=== PATIENT | male | born 1935 | race Caucasian/White ===

== ENCOUNTER 2018-09-26 06:11 | Inpatient (IN) ==
[2018-09-26] MEDS ORDERED: ASPIRIN 325 MG TABLET ONE (06:50)
[2018-09-26] MEDS ORDERED: LIDOCAINE 1% 20 ML VIAL ONE (06:50)
[2018-09-26] MEDS ORDERED: HEPARIN/NACL 0.9% 2 UNITS/ML 1,000 ML IV ONE (06:50)
[2018-09-26] MEDS ORDERED: DIAZEPAM 5 MG TABLET ONE (06:50)
[2018-09-26] MEDS ORDERED: diphenhydrAMINE CAP 25 MG CAPSULE ONE (06:51)
[2018-09-26] MEDS ORDERED: ASPIRIN 325 MG TABLET PO ONE (06:57)
[2018-09-26] MEDS ORDERED: diphenhydrAMINE CAP 25 MG CAPSULE PO ONE (06:57)
[2018-09-26] MEDS ORDERED: POTASSIUM CHLORIDE RIDER 10 MEQ in PREMIX 1 EACH IV PRN (06:57)
[2018-09-26] MEDS ORDERED: DIAZEPAM 5 MG TABLET PO ONE (06:57)
[2018-09-26] MEDS ORDERED: MAGNESIUM SULF RIDER 2 GM in PREMIX 1 EACH IV PRN (06:57)
[2018-09-26 07:06] LABS: Basophils # 0.1 10*3/uL (0.0-0.2); Basophils % 1.1 % (0.0-0.8); Eosinophils # 0.4 10*3/uL (0.0-0.87); Hematocrit 38.6 VOL% (42.0-52.0); Hemoglobin 12.4 GM/DL (14.0-18.0); Immature Granulocytes % 0.3 %; Immature Granulocytes Absolute 0.02 #; Lymphocytes # 2.4 10*3/uL (1.4-4.0); Lymphocytes % 37.4 % (21.2-54.2); Mean Corpuscular HGB Conc 32.1 GM/DL (32-36); Mean Corpuscular Volume 98.7 FL (87-102); Mean Platelet Volume 9.5 FL (9.6-12.0); Monocytes % 11.8 % (1.7-12.7); Neutrophils % 43.4 % (38.7-73.9); Platelet Count 211 T/CUMM (130-400); Red Blood Count 3.91 MC/CUMM (3.8-5.5); Red Cell Distribution Width 12.7 % (9.3-17.3); White Blood Count 6.3 T/CUMM (4-12)
[2018-09-26 07:11] LABS: PT Patient Result 10.6 SECS
[2018-09-26] MEDS: SODIUM CHLORIDE 0.9% 1,000 ML IV SCH ×3 (07:17→23:14)
[2018-09-26 07:19] LABS: Calcium 9.2 MG/DL (8.5-10.1); Osmolality,Calculated 286.4 MOS/KG (273-304)
[2018-09-26] MEDS ORDERED: MIDAZOLAM 2 MG/2 ML VIAL ONE (07:24)
[2018-09-26] MEDS ORDERED: HYDROmorphone 2 MG/1 ML VIAL ONE (07:24)
[2018-09-26] MEDS ORDERED: ONDANSETRON 4 MG/2 ML VIAL IV PRN (08:06)
[2018-09-26] MEDS ORDERED: DEXTROSE 50% 25 GM/50 ML VIAL IV PRN (08:06)
[2018-09-26] MEDS ORDERED: NITROGLYCERIN SL 0.4 MG TABLET SL PRN (08:06)
[2018-09-26] MEDS ORDERED: GLUCAGON 1 MG VIAL IM PRN (08:06)
[2018-09-26] MEDS ORDERED: ZALEPLON 5 MG CAPSULE PO PRN (08:06)
[2018-09-26] MEDS: ISOSORBIDE MONONITRATE 20 MG TABLET PO SCH (10:34)
[2018-09-26] MEDS: PANTOPRAZOLE 40 MG TABLET PO SCH (10:35)
[2018-09-26] MEDS: glipiZIDE 10 MG TABLET PO SCH (10:36)
[2018-09-26] MEDS: INSULIN NPH/REGULAR 70/30 100 UNIT/ML SUBCUT SCH ×2 (10:36→22:42)
[2018-09-26] MEDS: ASPIRIN EC 81 MG TABLET PO SCH (10:37)
[2018-09-26] MEDS: METOPROLOL SUCCINATE XL 25 MG TABLET PO SCH (10:37)
[2018-09-26] MEDS ORDERED: hydrALAZINE 20 MG/1 ML VIAL IV PRN (13:18)
[2018-09-26] MEDS: amLODIPine 5 MG TABLET PO SCH (14:56)
[2018-09-26] MEDS ORDERED: HEPARIN 5,000 UNIT/1 ML VIAL IV ONE ×2 (15:00→23:10)
[2018-09-26] MEDS: HEPARIN DRIP 25,000 UNITS/500 ML PREMIX IV SCH (15:28)
[2018-09-26] MEDS: INSULIN LISPRO 100 UNIT/ML SUBCUT SCH ×2 (16:13→22:42)
[2018-09-26] MEDS ORDERED: MAGNESIUM HYDROXIDE SUSP 30 ML UDCUP PO PRN (17:27)
[2018-09-26] MEDS ORDERED: diphenhydrAMINE CAP 25 MG CAPSULE PO PRN (17:27)
[2018-09-26] MEDS: ROSUVASTATIN 20 MG TABLET PO SCH (21:45)
[2018-09-27] MEDS: SODIUM CHLORIDE 0.9% 1,000 ML IV SCH ×4 (04:24→18:51)
[2018-09-27 05:02] LABS: Basophils % 0.5 % (0.0-0.8); Eosinophils # 0.3 10*3/uL (0.0-0.87); Hematocrit 33.8 VOL% (42.0-52.0); Hemoglobin 10.8 GM/DL (14.0-18.0); Immature Granulocytes % 0.3 %; Immature Granulocytes Absolute 0.02 #; Lymphocytes # 1.9 10*3/uL (1.4-4.0); Lymphocytes % 28.9 % (21.2-54.2); Mean Corpuscular Volume 99.4 FL (87-102); Mean Platelet Volume 11.6 FL (9.6-12.0); Monocytes % 10.9 % (1.7-12.7); Neutrophils % 54.4 % (38.7-73.9); Platelet Count 91 T/CUMM (130-400); Red Cell Distribution Width 12.6 % (9.3-17.3); White Blood Count 6.4 T/CUMM (4-12)
[2018-09-27 05:27] LABS: Eosinophils 2 % (0-10); Lymphocytes 30 % (20-55); Segmented Neutrophils 61 % (50-85); Total Cells Counted 100
[2018-09-27 05:29] LABS: Platelet Estimate Decreased
[2018-09-27] MEDS ORDERED: HEPARIN 5,000 UNIT/1 ML VIAL IV ONE (05:29)
[2018-09-27 05:30] LABS: Hypochromasia 1+
[2018-09-27 05:32] LABS: Calcium 8.2 MG/DL (8.5-10.1); Osmolality,Calculated 290.4 MOS/KG (273-304)
[2018-09-27] MEDS ORDERED: DEXTROSE 50% 25 GM/50 ML VIAL IV PRN (08:57)
[2018-09-27] MEDS ORDERED: GLUCAGON 1 MG VIAL IM PRN (08:57)
[2018-09-27] MEDS ORDERED: CEFUROXIME INJ 1,500 MG in SYRINGE 1 EACH IV ONE (08:57)
[2018-09-27] MEDS: ASPIRIN EC 81 MG TABLET PO SCH (10:08)
[2018-09-27] MEDS: amLODIPine 5 MG TABLET PO SCH (10:09)
[2018-09-27] MEDS: ISOSORBIDE MONONITRATE 20 MG TABLET PO SCH (10:09)
[2018-09-27] MEDS: glipiZIDE 10 MG TABLET PO SCH (10:09)
[2018-09-27] MEDS: PANTOPRAZOLE 40 MG TABLET PO SCH (10:09)
[2018-09-27] MEDS: INSULIN LISPRO 100 UNIT/ML SUBCUT SCH ×4 (10:10→22:15)
[2018-09-27] MEDS: METOPROLOL SUCCINATE XL 25 MG TABLET PO SCH (10:10)
[2018-09-27] MEDS: INSULIN NPH/REGULAR 70/30 100 UNIT/ML SUBCUT SCH ×2 (10:30→22:15)
[2018-09-27] MEDS: CHLORHEXIDINE 4% SOLN 118 ML BOTTLE TOP SCH ×2 (17:46→21:43)
[2018-09-27 18:05] LABS: ABG Base Excess 0.3 MMOL/L (-2.5-2.5); ABG HCO3 23.5 MMOL/L (20-26); ABG Oxygen Saturation 97.7 % (95-100); ABG PCO2 33.8 MM HG (35-48); ABG PO2 104.5 MM HG (80-95); ABG TCO2 24.5 MMOL/L (23-27)
[2018-09-27] MEDS: ROSUVASTATIN 20 MG TABLET PO SCH (21:43)
[2018-09-27] MEDS: CHLORHEXIDINE 0.12% ORAL RINSE 60 ML BOTTLE SWISH/SPIT SCH (21:43)
[2018-09-28] MEDS ORDERED: PAPAVERINE 60 MG/2 ML VIAL ONE (04:21)
[2018-09-28] MEDS ORDERED: VANCOMYCIN 1,000 MG VIAL ONE (04:21)
[2018-09-28] MEDS: amLODIPine 5 MG TABLET PO SCH ×2 (06:08→13:02)
[2018-09-28] MEDS ORDERED: MIDAZOLAM 10 MG/2 ML VIAL ONE ×2 (06:09)
[2018-09-28] MEDS ORDERED: SUFentanil 250 MCG/5 ML AMP ONE (06:09)
[2018-09-28] MEDS ORDERED: CEFUROXIME INJ 1,500 MG in SYRINGE 1 EACH IV ONE (06:30)
[2018-09-28] MEDS ORDERED: FAMOTIDINE 20 MG TABLET PO ONE (07:00)
[2018-09-28] MEDS ORDERED: DIAZEPAM 5 MG TABLET PO ONE (07:00)
[2018-09-28] MEDS ORDERED: SODIUM BICARBONATE 50 MEQ/50 ML VIAL IV ONE ×2 (07:31→09:58)
[2018-09-28] MEDS ORDERED: NITROPRUSSIDE 50 MG/2 ML VIAL ONE (07:31)
[2018-09-28] MEDS ORDERED: PHENYLEPHRINE DRIP 40 MG/250 ML PREMIX IV ONE (07:31)
[2018-09-28] MEDS ORDERED: CALCIUM CHLORIDE 1,000 MG/10 ML SYRINGE IV ONE (07:32)
[2018-09-28] MEDS ORDERED: POTASSIUM CHLORIDE RIDER 100 ML IV ONE (07:32)
[2018-09-28] MEDS ORDERED: ALBUMIN 5% 12.5 GM/250 ML VIAL IV ONE (07:33)
[2018-09-28 07:42] LABS: ABG Base Excess 0.3 MMOL/L (-2.5-2.5); ABG HCO3 24.7 MMOL/L (20-26); ABG PCO2 39.6 MM HG (35-48); ABG PH 7.406 (7.35-7.45); ABG TCO2 22.1 MMOL/L (23-27); Glucose Heart Surgery 313 MG/DL (74-106); Hematocrit Heart Surgery 36.4 PERCENT (42-52); Hemoglobin Heart Surgery 11.8 G/DL (14.0-18.0); Ionized Calcium Arterial 1.16 MMOL/L (1.21-1.46); PCO2 Patient Temp Arterial 39.6 MMHG; PH Patient Temp Arterial 7.406; Patient Temperature 37 CELCIUS; Potassium Heart/CVR 4.5 MMOL/L (3.5-5.1); Sodium Heart/CVR 137 MMOL/L (135-145)
[2018-09-28 08:35] LABS: Apearance,Urine CLEAR (Clear); Bilirubin,Urine Negative (Negative); Blood, Urine Moderate mg/dL (Negative); Glucose,Urine (UA) >=500 mg/dL (Negative); Ketones,Urine 20 mg/dL (Negative); Nitrite,Urine Negative (Negative); Protein,Urine Negative; RBC,Urine 6 /HPF (0-4); Urine Color Straw (Yellow); Urine Urobilinogen < 2.0 EU/DL (0.2-1.0)
[2018-09-28] MEDS ORDERED: CALCIUM CHLORIDE 1,000 MG/10 ML VIAL IV ONE (08:54)
[2018-09-28] MEDS ORDERED: MINERAL OIL/PETROLATUM OPH OINT 3.5 GM TUBE ONE (08:54)
[2018-09-28] MEDS ORDERED: VECURONIUM 10 MG VIAL IV ONE (08:54)
[2018-09-28] MEDS ORDERED: PHENYLEPHRINE DRIP 20 MG/250 ML PREMIX IV ONE (08:54)
[2018-09-28] MEDS ORDERED: AMINOCAPROIC ACID 5,000 MG/20 ML VIAL ONE (08:55)
[2018-09-28] MEDS ORDERED: HEPARIN/NACL 0.9% 2 UNITS/ML 500 ML IV ONE (08:55)
[2018-09-28] MEDS ORDERED: ETOMIDATE 40 MG/20 ML VIAL IV ONE (08:55)
[2018-09-28] MEDS ORDERED: NITROGLYCERIN DRIP 50 MG/250 ML BOTTLE IV ONE (08:55)
[2018-09-28 08:56] LABS: Hematocrit Heart Surgery 22.7 PERCENT (42-52); Hemoglobin Heart Surgery 7.3 G/DL (14.0-18.0); PCO2 Patient Temp Venous 31.7 MM HG; PH Patient Temp Venous 7.469; PO2 Patient Temp Venous 41.6 MM HG; Potassium Heart/CVR 5.7 MMOL/L (3.5-5.1); VBG Base Excess -0.2 MEQ/L (0-4); VBG HCO3 24.2 MEQ/L (24-28); VBG Oxygen Saturation 88.4 %; VBG PCO2 36.6 MMHG (41-51); VBG PH 7.424; VBG PO2 50.9 MMHG (17-40)
[2018-09-28 09:30] LABS: Hemoglobin Heart Surgery 8.6 G/DL (14.0-18.0); PH Patient Temp Venous 7.456; PO2 Patient Temp Venous 42.2 MM HG; Potassium Heart/CVR 6.7 MMOL/L (3.5-5.1); VBG Base Excess -0.4 MEQ/L (0-4); VBG HCO3 23.9 MEQ/L (24-28); VBG Oxygen Saturation 79.1 %; VBG PCO2 37.1 MMHG (41-51); VBG PH 7.426; VBG PO2 48.6 MMHG (17-40)
[2018-09-28] MEDS ORDERED: MANNITOL 100 GM/500 ML BAG IV ONE (09:58)
[2018-09-28] MEDS ORDERED: DEXTROSE 5% KCL 20 MEQ 20 MEQ/1,000 ML BAG IV ONE (09:58)
[2018-09-28] MEDS ORDERED: MAGNESIUM SULFATE 5 GM/10 ML VIAL IV ONE (09:58)
[2018-09-28] MEDS ORDERED: PROTAMINE SULFATE 250 MG/25 ML VIAL IV ONE (09:58)
[2018-09-28] MEDS ORDERED: ALBUMIN 25% 25 GM/100 ML VIAL IV ONE (09:58)
[2018-09-28] MEDS ORDERED: methylPREDNISolone SOD SUC 1,000 MG/8 ML VIAL ONE (09:59)
[2018-09-28] MEDS ORDERED: HEPARIN 10,000 UNIT/10 ML VIAL ONE (09:59)
[2018-09-28] MEDS ORDERED: FUROSEMIDE 20 MG/2 ML VIAL ONE (09:59)
[2018-09-28 10:04] LABS: ABG Base Excess -2.5 MMOL/L (-2.5-2.5); ABG HCO3 22.1 MMOL/L (20-26); ABG PCO2 37.5 MM HG (35-48); ABG PH 7.389 (7.35-7.45); ABG PO2 450.7 MM HG (80-95); ABG TCO2 23.3 MMOL/L (23-27); Glucose Heart Surgery 379 MG/DL (74-106); Hemoglobin Heart Surgery 9.4 G/DL (14.0-18.0); PCO2 Patient Temp Arterial 37.5 MMHG; PH Patient Temp Arterial 7.389; PO2 Patient Temp Arterial 450.7 MM HG; Patient Temperature 37 CELCIUS; Potassium Heart/CVR 4.6 MMOL/L (3.5-5.1); Sodium Heart/CVR 131 MMOL/L (135-145)
[2018-09-28] MEDS: LACTATED RINGERS 1,000 ML IV PRN ×3 (10:30→19:11)
[2018-09-28] MEDS ORDERED: SEVOFLURANE 1 UNIT/15 MINUTE INH ONE (11:04)
[2018-09-28] MEDS ORDERED: SODIUM CHLORIDE 0.9% 250 ML IV ONE (11:04)
[2018-09-28] MEDS ORDERED: SODIUM CHLORIDE 0.9% 1,000 ML IV ONE (11:04)
[2018-09-28] MEDS ORDERED: fentaNYL 100 MCG/2 ML VIAL ONE (11:04)
[2018-09-28] MEDS ORDERED: SODIUM CHLORIDE 0.9% 100 ML IV ONE (11:04)
[2018-09-28] MEDS ORDERED: LACTATED RINGERS 1,000 ML IV ONE (11:04)
[2018-09-28] MEDS ORDERED: PROTAMINE SULFATE 50 MG/5 ML VIAL IV ONE ×2 (11:05→11:14)
[2018-09-28] MEDS ORDERED: VECURONIUM 10 MG VIAL IV PRN ×2 (11:13)
[2018-09-28] MEDS ORDERED: MAGNESIUM SULF RIDER 4 GM in PREMIX 1 EACH IV PRN (11:13)
[2018-09-28] MEDS ORDERED: ACETAMINOPHEN 650 MG SUPP RECTAL PRN (11:13)
[2018-09-28] MEDS ORDERED: DEXTROSE 50% 25 GM/50 ML VIAL IV PRN ×2 (11:13)
[2018-09-28] MEDS ORDERED: MAGNESIUM SULF RIDER 2 GM in PREMIX 1 EACH IV PRN (11:13)
[2018-09-28] MEDS ORDERED: ONDANSETRON 4 MG/2 ML VIAL IV PRN (11:13)
[2018-09-28] MEDS ORDERED: SODIUM CHLORIDE 0.45% 1,000 ML IV SCH ×2 (11:13)
[2018-09-28] MEDS ORDERED: LACTATED RINGERS 250 ML IV PRN (11:13)
[2018-09-28] MEDS ORDERED: NITROPRUSSIDE 100 MG in DEXTROSE 5% 250 ML IV PRN (11:13)
[2018-09-28] MEDS ORDERED: MIDAZOLAM 2 MG/2 ML VIAL IV PRN (11:13)
[2018-09-28] MEDS ORDERED: INSULIN REGULAR 100 UNIT/ML IV ONE (11:13)
[2018-09-28] MEDS ORDERED: POTASSIUM CHLORIDE RIDER 10 MEQ in PREMIX 1 EACH IV PRN (11:13)
[2018-09-28] MEDS ORDERED: INSULIN REGULAR DRIP 100 ML IV SCH (11:13)
[2018-09-28] MEDS ORDERED: MORPHINE 10 MG/1 ML VIAL IV PRN (11:13)
[2018-09-28] MEDS ORDERED: CALCIUM CHLORIDE 1,000 MG/10 ML SYRINGE IV PRN (11:13)
[2018-09-28] MEDS ORDERED: PHENYLEPHRINE DRIP 40 MG/250 ML PREMIX IV PRN (11:13)
[2018-09-28] MEDS ORDERED: INSULIN REGULAR 100 UNIT/ML IV PRN (11:13)
[2018-09-28] MEDS ORDERED: MORPHINE 4 MG/1 ML VIAL IV PRN (11:13)
[2018-09-28 11:17] LABS: ABG Base Excess -0.8 MMOL/L (-2.5-2.5); ABG HCO3 23.8 MMOL/L (20-26); ABG Oxygen Saturation 99.4 % (95-100); ABG PCO2 39.9 MM HG (35-48); ABG PH 7.389 (7.35-7.45); Glucose Heart Surgery 300 MG/DL (74-106); Hematocrit Heart Surgery 29.7 PERCENT (42-52); Hemoglobin Heart Surgery 9.6 G/DL (14.0-18.0); Potassium Heart/CVR 3.9 MMOL/L (3.5-5.1)
[2018-09-28 11:19] LABS: Basophils % 0.3 % (0.0-0.8); Eosinophils # 0.1 10*3/uL (0.0-0.87); Eosinophils % 1.1 % (0.00-10.9); Hematocrit 27.9 VOL% (42.0-52.0); Hemoglobin 9.1 GM/DL (14.0-18.0); Immature Granulocytes % 0.7 %; Immature Granulocytes Absolute 0.06 #; Lymphocytes # 0.6 10*3/uL (1.4-4.0); Lymphocytes % 6.8 % (21.2-54.2); Mean Corpuscular HGB Conc 32.6 GM/DL (32-36); Mean Corpuscular Volume 98.9 FL (87-102); Mean Platelet Volume 9.7 FL (9.6-12.0); Monocytes % 4.7 % (1.7-12.7); Neutrophils % 86.4 % (38.7-73.9); Platelet Count 143 T/CUMM (130-400); Red Blood Count 2.82 MC/CUMM (3.8-5.5); Red Cell Distribution Width 12.5 % (9.3-17.3); White Blood Count 8.9 T/CUMM (4-12)
[2018-09-28] MEDS: ALBUMIN 5% 12.5 GM in PREMIX 1 EACH IV PRN ×4 (11:30→20:54)
[2018-09-28 11:33] LABS: INR 1.1; Partial Thromboplastin Time 24.5 SECS (0-40)
[2018-09-28 11:42] LABS: CKMB % 8.3 %
[2018-09-28 11:44] LABS: Troponin I 4.36 NG/ML (0.00-0.045)
[2018-09-28 11:47] LABS: Albumin 2.8 G/DL (3.4-5.0); Bilirubin,Total 0.8 MG/DL (0.2-1.0); Calcium 8.2 MG/DL (8.5-10.1); Osmolality,Calculated 289.5 MOS/KG (273-304); Total Protein 5.2 G/DL (6.4-8.3)
[2018-09-28] MEDS: POTASSIUM CHLORIDE RIDER 20 MEQ in PREMIX 1 EACH IV PRN ×2 (12:46→14:10)
[2018-09-28] MEDS: PANTOPRAZOLE 40 MG TABLET PO SCH (13:02)
[2018-09-28] MEDS: ISOSORBIDE MONONITRATE 20 MG TABLET PO SCH (13:02)
[2018-09-28] MEDS: ASPIRIN EC 81 MG TABLET PO SCH (13:02)
[2018-09-28] MEDS: METOPROLOL SUCCINATE XL 25 MG TABLET PO SCH (13:03)
[2018-09-28] MEDS: INSULIN NPH/REGULAR 70/30 100 UNIT/ML SUBCUT SCH (13:06)
[2018-09-28] MEDS: SODIUM CHLORIDE 0.9% 1,000 ML IV SCH ×2 (13:06→13:08)
[2018-09-28] MEDS: glipiZIDE 10 MG TABLET PO SCH (13:07)
[2018-09-28] MEDS: INSULIN LISPRO 100 UNIT/ML SUBCUT SCH (13:07)
[2018-09-28] MEDS: HEPARIN DRIP 25,000 UNITS/500 ML PREMIX IV SCH (13:08)
[2018-09-28] MEDS: CHLORHEXIDINE 4% SOLN 118 ML BOTTLE TOP SCH (13:08)
[2018-09-28] MEDS: CHLORHEXIDINE 0.12% ORAL RINSE 60 ML BOTTLE SWISH/SPIT SCH ×2 (13:09→21:57)
[2018-09-28] MEDS: KETOROLAC 15 MG/1 ML VIAL IV SCH ×2 (13:12→19:07)
[2018-09-28 13:24] LABS: ABG Base Excess 0.3 MMOL/L (-2.5-2.5); ABG HCO3 24.7 MMOL/L (20-26); ABG Oxygen Saturation 99.3 % (95-100); ABG PCO2 37.1 MM HG (35-48); ABG PH 7.426 (7.35-7.45); ABG TCO2 21.9 MMOL/L (23-27); Glucose Heart Surgery 258 MG/DL (74-106); Hematocrit Heart Surgery 33.5 PERCENT (42-52); Hemoglobin Heart Surgery 10.9 G/DL (14.0-18.0); Potassium Heart/CVR 4.2 MMOL/L (3.5-5.1)
[2018-09-28 15:01] LABS: ABG Base Excess 0.6 MMOL/L (-2.5-2.5); ABG Oxygen Saturation 99.4 % (95-100); ABG PCO2 38.4 MM HG (35-48); ABG PH 7.421 (7.35-7.45); ABG TCO2 22.6 MMOL/L (23-27); Glucose Heart Surgery 191 MG/DL (74-106); Hematocrit Heart Surgery 31.5 PERCENT (42-52); Hemoglobin Heart Surgery 10.2 G/DL (14.0-18.0); Potassium Heart/CVR 4.2 MMOL/L (3.5-5.1)
[2018-09-28] MEDS: MIDAZOLAM 10 MG/2 ML VIAL IV PRN ×3 (15:17→18:10)
[2018-09-28 17:53] LABS: ABG HCO3 26.3 MMOL/L (20-26); ABG Oxygen Saturation 99.5 % (95-100); ABG PCO2 39.3 MM HG (35-48); ABG PH 7.434 (7.35-7.45); ABG TCO2 23.8 MMOL/L (23-27); Glucose Heart Surgery 107 MG/DL (74-106); Hematocrit Heart Surgery 31.3 PERCENT (42-52); Hemoglobin Heart Surgery 10.1 G/DL (14.0-18.0); Potassium Heart/CVR 3.9 MMOL/L (3.5-5.1)
[2018-09-28] MEDS ORDERED: PROPOFOL 1,000 MG/100 ML BOTTLE IV ONE (18:31)
[2018-09-28] MEDS ORDERED: PROPOFOL 1,000 MG/100 ML BOTTLE IV SCH (19:00)
[2018-09-28] MEDS: CEFUROXIME INJ 1,500 MG in SYRINGE 1 EACH IV SCH (19:06)
[2018-09-28 20:39] LABS: ABG Base Excess 0.7 MMOL/L (-2.5-2.5); ABG HCO3 25.1 MMOL/L (20-26); ABG Oxygen Saturation 99.4 % (95-100); ABG PCO2 40.4 MM HG (35-48); ABG PH 7.407 (7.35-7.45); ABG TCO2 22.2 MMOL/L (23-27); Glucose Heart Surgery 97 MG/DL (74-106); Potassium Heart/CVR 3.9 MMOL/L (3.5-5.1)
[2018-09-28 21:05] LABS: CKMB % 6.8 %
[2018-09-28 21:10] LABS: Troponin I 5.23 NG/ML (0.00-0.045)
[2018-09-29] MEDS ORDERED: FUROSEMIDE 40 MG/4 ML VIAL IV ONE
[2018-09-29] MEDS: KETOROLAC 15 MG/1 ML VIAL IV SCH ×4 (00:30→17:19)
[2018-09-29 00:33] LABS: ABG Base Excess -1.6 MMOL/L (-2.5-2.5); ABG HCO3 23.1 MMOL/L (20-26); ABG Oxygen Saturation 99.4 % (95-100); ABG PH 7.406 (7.35-7.45); Glucose Heart Surgery 148 MG/DL (74-106); Hematocrit Heart Surgery 37.5 PERCENT (42-52); Hemoglobin Heart Surgery 12.2 G/DL (14.0-18.0); Potassium Heart/CVR 4.4 MMOL/L (3.5-5.1)
[2018-09-29 04:12] LABS: ABG HCO3 22.4 MMOL/L (20-26); ABG Oxygen Saturation 98.4 % (95-100); ABG PCO2 29.1 MM HG (35-48); ABG PH 7.504 (7.35-7.45); ABG PO2 157.3 MM HG (80-95); ABG TCO2 23.3 MMOL/L (23-27); Glucose Heart Surgery 133 MG/DL (74-106); Hemoglobin Heart Surgery 10.5 G/DL (14.0-18.0); Potassium Heart/CVR 4.3 MMOL/L (3.5-5.1)
[2018-09-29 04:17] LABS: Basophils % 0.2 % (0.0-0.8); Hematocrit 29.3 VOL% (42.0-52.0); Hemoglobin 9.7 GM/DL (14.0-18.0); Immature Granulocytes % 0.6 %; Lymphocytes # 0.5 10*3/uL (1.4-4.0); Lymphocytes % 3.2 % (21.2-54.2); Mean Corpuscular HGB Conc 33.1 GM/DL (32-36); Mean Corpuscular Volume 95.4 FL (87-102); Mean Platelet Volume 10.1 FL (9.6-12.0); Monocytes % 4.2 % (1.7-12.7); Neutrophils % 91.8 % (38.7-73.9); Platelet Count 156 T/CUMM (130-400); Red Blood Count 3.07 MC/CUMM (3.8-5.5)
[2018-09-29] MEDS: ALBUMIN 5% 12.5 GM in PREMIX 1 EACH IV PRN (04:40)
[2018-09-29 04:45] LABS: Albumin 3.8 G/DL (3.4-5.0); Bilirubin,Direct 0.19 MG/DL (0.0-0.20); CKMB % 6.7 %; Calcium 8.6 MG/DL (8.5-10.1); Osmolality,Calculated 286.3 MOS/KG (273-304)
[2018-09-29 04:46] LABS: Troponin I 4.53 NG/ML (0.00-0.045)
[2018-09-29 05:03] LABS: Band Neutrophils 4 % (0-10); Lymphocytes 3 % (20-55); Platelet Estimate Adequate; Segmented Neutrophils 90 % (50-85); Total Cells Counted 100
[2018-09-29 05:52] LABS: ABG Base Excess -1.8 MMOL/L (-2.5-2.5); ABG HCO3 22.9 MMOL/L (20-26); ABG Oxygen Saturation 99.5 % (95-100); ABG PCO2 41.1 MM HG (35-48); ABG PH 7.364 (7.35-7.45); ABG TCO2 21.5 MMOL/L (23-27); Glucose Heart Surgery 153 MG/DL (74-106); Hematocrit Heart Surgery 29.6 PERCENT (42-52); Hemoglobin Heart Surgery 9.6 G/DL (14.0-18.0); Potassium Heart/CVR 4.3 MMOL/L (3.5-5.1)
[2018-09-29] MEDS: CEFUROXIME INJ 1,500 MG in SYRINGE 1 EACH IV SCH (06:36)
[2018-09-29 07:03] LABS: ABG Base Excess -1.1 MMOL/L (-2.5-2.5); ABG HCO3 23.5 MMOL/L (20-26); ABG Oxygen Saturation 98.5 % (95-100); ABG PCO2 33.7 MM HG (35-48); ABG PH 7.435 (7.35-7.45); ABG TCO2 20.6 MMOL/L (23-27); Glucose Heart Surgery 159 MG/DL (74-106); Hematocrit Heart Surgery 29.8 PERCENT (42-52); Hemoglobin Heart Surgery 9.6 G/DL (14.0-18.0); Potassium Heart/CVR 4.3 MMOL/L (3.5-5.1)
[2018-09-29] MEDS ORDERED: GLUCAGON 1 MG VIAL IM PRN ×3 (07:20→09:29)
[2018-09-29] MEDS ORDERED: INSULIN REGULAR 100 UNIT/ML SUBCUT SCH ×2 (07:21→12:00)
[2018-09-29] MEDS: CHLORHEXIDINE 0.12% ORAL RINSE 60 ML BOTTLE SWISH/SPIT SCH ×2 (09:07→21:19)
[2018-09-29] MEDS ORDERED: NITROGLYCERIN SL 0.4 MG TABLET SL PRN (09:29)
[2018-09-29] MEDS ORDERED: ONDANSETRON 4 MG/2 ML VIAL IV PRN (09:29)
[2018-09-29] MEDS ORDERED: MAGNESIUM SULF RIDER 2 GM in PREMIX 1 EACH IV PRN (09:29)
[2018-09-29] MEDS ORDERED: ZALEPLON 5 MG CAPSULE PO PRN (09:29)
[2018-09-29] MEDS ORDERED: MAGNESIUM SULF RIDER 4 GM in PREMIX 1 EACH IV PRN (09:29)
[2018-09-29] MEDS ORDERED: ACETAMINOPHEN 325 MG TABLET PO PRN (09:29)
[2018-09-29] MEDS ORDERED: DEXTROSE 50% 25 GM/50 ML VIAL IV PRN ×2 (09:29)
[2018-09-29] MEDS ORDERED: ALUMINUM/MAGNES/SIMETH MAX STR 30 ML UDCUP PO PRN (09:29)
[2018-09-29] MEDS ORDERED: POTASSIUM CHLORIDE 20 MEQ TABLET PO PRN (09:29)
[2018-09-29] MEDS ORDERED: SODIUM CHLOR 0.45% KCL 20 MEQ 20 MEQ/1,000 ML BAG IV SCH (09:30)
[2018-09-29] MEDS ORDERED: KETOROLAC 15 MG/1 ML VIAL IV SCH (09:30)
[2018-09-29] MEDS: PANTOPRAZOLE 40 MG TABLET PO SCH (10:06)
[2018-09-29] MEDS: DOCUSATE SODIUM 100 MG CAPSULE PO SCH (10:06)
[2018-09-29] MEDS: INSULIN REGULAR 100 UNIT/ML SUBCUT SCH ×5 (13:21→21:20)
[2018-09-29] MEDS ORDERED: CEFUROXIME INJ 1,500 MG in SYRINGE 1 EACH IV ONE (18:00)
[2018-09-29] MEDS: ROSUVASTATIN 20 MG TABLET PO SCH (21:19)
[2018-09-30] MEDS: KETOROLAC 15 MG/1 ML VIAL IV SCH ×4 (00:06→17:26)
[2018-09-30] MEDS: INSULIN REGULAR 100 UNIT/ML SUBCUT SCH ×6 (02:36→21:48)
[2018-09-30 05:07] LABS: Basophils % 0.1 % (0.0-0.8); Hematocrit 26.2 VOL% (42.0-52.0); Hemoglobin 8.8 GM/DL (14.0-18.0); Immature Granulocytes % 1.1 %; Immature Granulocytes Absolute 0.21 #; Lymphocytes # 0.6 10*3/uL (1.4-4.0); Lymphocytes % 3.2 % (21.2-54.2); Mean Corpuscular HGB Conc 33.6 GM/DL (32-36); Mean Corpuscular Volume 96.3 FL (87-102); Mean Platelet Volume 10.5 FL (9.6-12.0); Monocytes % 7.5 % (1.7-12.7); Neutrophils % 88.1 % (38.7-73.9); Platelet Count 123 T/CUMM (130-400); Red Blood Count 2.72 MC/CUMM (3.8-5.5); Red Cell Distribution Width 14.4 % (9.3-17.3); White Blood Count 18.9 T/CUMM (4-12)
[2018-09-30 05:34] LABS: Osmolality,Calculated 293.8 MOS/KG (273-304)
[2018-09-30 05:39] LABS: Albumin 3.5 G/DL (3.4-5.0); Bilirubin,Direct 0.14 MG/DL (0.0-0.20); Bilirubin,Indirect 0.4 MG/DL (0.0-1.0); Bilirubin,Total 0.5 MG/DL (0.2-1.0); CKMB % 2.8 %; Calcium 8.4 MG/DL (8.5-10.1); Osmolality,Calculated 293.7 MOS/KG (273-304); Total Protein 5.9 G/DL (6.4-8.3)
[2018-09-30] MEDS ORDERED: FUROSEMIDE 40 MG/4 ML VIAL IV ONE (06:00)
[2018-09-30 06:53] LABS: Troponin I 3.23 NG/ML (0.00-0.045)
[2018-09-30] MEDS ORDERED: LIDOCAINE 1% 20 ML VIAL MISC INJ ONE (07:58)
[2018-09-30] MEDS: METOPROLOL SUCCINATE XL 25 MG TABLET PO SCH (09:23)
[2018-09-30] MEDS: FERROUS SULFATE 325 MG TABLET PO SCH (09:24)
[2018-09-30] MEDS: ASPIRIN EC 81 MG TABLET PO SCH (09:24)
[2018-09-30] MEDS: DOCUSATE SODIUM 100 MG CAPSULE PO SCH (09:24)
[2018-09-30] MEDS: LISINOPRIL 20 MG TABLET PO SCH (09:24)
[2018-09-30] MEDS: amLODIPine 5 MG TABLET PO SCH (09:24)
[2018-09-30] MEDS: PANTOPRAZOLE 40 MG TABLET PO SCH (09:24)
[2018-09-30] MEDS: CHLORHEXIDINE 0.12% ORAL RINSE 60 ML BOTTLE SWISH/SPIT SCH ×2 (09:27→20:30)
[2018-09-30] MEDS: glipiZIDE 10 MG TABLET PO SCH (09:40)
[2018-09-30] MEDS ORDERED: BACITRACIN OINT 0.9 GM PACK TOP ONE (14:54)
[2018-09-30] MEDS: ROSUVASTATIN 20 MG TABLET PO SCH (20:30)
[2018-10-01] MEDS: KETOROLAC 15 MG/1 ML VIAL IV SCH ×4 (00:05→17:34)
[2018-10-01] MEDS ORDERED: AMIODARONE INJ 150 MG in DEXTROSE 5% 100 ML IV ONE (05:50)
[2018-10-01] MEDS ORDERED: DILTIAZEM 25 MG/5 ML VIAL IV ONE ×2 (05:52→05:56)
[2018-10-01] MEDS ORDERED: AMIODARONE INJ 450 MG in DEXTROSE 5% 241 ML IV SCH (06:00)
[2018-10-01] MEDS ORDERED: dilTIAZem Drip 125 MG/125 ML PREMIX IV SCH (06:00)
[2018-10-01 06:15] LABS: Basophils % 0.1 % (0.0-0.8); Eosinophils % 0.1 % (0.00-10.9); Hemoglobin 8.7 GM/DL (14.0-18.0); Immature Granulocytes % 0.7 %; Immature Granulocytes Absolute 0.11 #; Lymphocytes # 1.2 10*3/uL (1.4-4.0); Lymphocytes % 7.8 % (21.2-54.2); Mean Corpuscular HGB Conc 33.5 GM/DL (32-36); Mean Corpuscular Volume 96.7 FL (87-102); Mean Platelet Volume 11.1 FL (9.6-12.0); Monocytes % 9.5 % (1.7-12.7); Neutrophils % 81.8 % (38.7-73.9); Platelet Count 127 T/CUMM (130-400); Red Blood Count 2.69 MC/CUMM (3.8-5.5); Red Cell Distribution Width 13.9 % (9.3-17.3); White Blood Count 14.8 T/CUMM (4-12)
[2018-10-01] MEDS ORDERED: AMIODARONE 150 MG/3 ML VIAL ONE (06:30)
[2018-10-01 06:48] LABS: Osmolality,Calculated 295.4 MOS/KG (273-304)
[2018-10-01 06:53] LABS: Alanine Aminotransferase 13 U/L (16-61); Albumin 3.2 G/DL (3.4-5.0); Alkaline Phosphatase 43 U/L (45-117); Aspartate Amino Transferase 21 U/L (0-37); Bilirubin,Indirect 0.4 MG/DL (0.0-1.0); Blood Urea Nitrogen 41 MG/DL (7-18); Calcium 8.3 MG/DL (8.5-10.1); Glucose 221 MG/DL (74-106); Osmolality,Calculated 293.5 MOS/KG (273-304); Total Protein 5.8 G/DL (6.4-8.3)
[2018-10-01] MEDS: FERROUS SULFATE 325 MG TABLET PO SCH (08:25)
[2018-10-01] MEDS: glipiZIDE 10 MG TABLET PO SCH (08:25)
[2018-10-01] MEDS: METOPROLOL SUCCINATE XL 25 MG TABLET PO SCH (08:25)
[2018-10-01] MEDS: DOCUSATE SODIUM 100 MG CAPSULE PO SCH (08:25)
[2018-10-01] MEDS: LISINOPRIL 20 MG TABLET PO SCH (08:25)
[2018-10-01] MEDS: PANTOPRAZOLE 40 MG TABLET PO SCH (08:25)
[2018-10-01] MEDS: ASPIRIN EC 81 MG TABLET PO SCH (08:25)
[2018-10-01] MEDS: INSULIN REGULAR 100 UNIT/ML SUBCUT SCH ×4 (08:25→20:24)
[2018-10-01] MEDS: amLODIPine 5 MG TABLET PO SCH (08:25)
[2018-10-01] MEDS: CHLORHEXIDINE 0.12% ORAL RINSE 60 ML BOTTLE SWISH/SPIT SCH ×2 (08:27→20:26)
[2018-10-01] MEDS ORDERED: METOPROLOL TARTRATE 25 MG TABLET PO SCH (09:24)
[2018-10-01] MEDS: ASCORBIC ACID 500 MG TABLET PO SCH ×2 (13:16→20:26)
[2018-10-01] MEDS ORDERED: ceFAZolin 1,000 MG VIAL IRRIG ONE (18:37)
[2018-10-02] MEDS: KETOROLAC 15 MG/1 ML VIAL IV SCH ×2 (00:10→06:21)
[2018-10-02] MEDS ORDERED: ceFAZolin 1,000 MG in SYRINGE 1 EACH IV ONE (06:00)
[2018-10-02 06:44] LABS: Basophils % 0.2 % (0.0-0.8); Eosinophils # 0.2 10*3/uL (0.0-0.87); Eosinophils % 1.5 % (0.00-10.9); Hematocrit 27.5 VOL% (42.0-52.0); Hemoglobin 8.8 GM/DL (14.0-18.0); Immature Granulocytes % 0.9 %; Lymphocytes # 1.8 10*3/uL (1.4-4.0); Lymphocytes % 15.5 % (21.2-54.2); Mean Corpuscular Volume 98.9 FL (87-102); Mean Platelet Volume 11.3 FL (9.6-12.0); Monocytes % 9.1 % (1.7-12.7); Neutrophils % 72.8 % (38.7-73.9); Platelet Count 135 T/CUMM (130-400); Red Blood Count 2.78 MC/CUMM (3.8-5.5); Red Cell Distribution Width 13.7 % (9.3-17.3); White Blood Count 11.5 T/CUMM (4-12)
[2018-10-02 07:01] LABS: Calcium 8.4 MG/DL (8.5-10.1); Osmolality,Calculated 296.3 MOS/KG (273-304)
[2018-10-02] MEDS ORDERED: LIDOCAINE 1% 20 ML VIAL ONE (13:02)
[2018-10-02] MEDS ORDERED: MIDAZOLAM 2 MG/2 ML VIAL ONE (13:03)
[2018-10-02] MEDS ORDERED: fentaNYL 100 MCG/2 ML VIAL ONE (13:03)
[2018-10-02] MEDS ORDERED: ceFAZolin 1,000 MG VIAL ONE (13:03)
[2018-10-02] MEDS ORDERED: TISSUE ADHESIVE 1 EACH APPLICATOR TOP ONE (14:03)
[2018-10-02] MEDS: ASCORBIC ACID 500 MG TABLET PO SCH ×2 (15:54→20:42)
[2018-10-02] MEDS: ASPIRIN EC 81 MG TABLET PO SCH (15:54)
[2018-10-02] MEDS: CHLORHEXIDINE 0.12% ORAL RINSE 60 ML BOTTLE SWISH/SPIT SCH ×2 (15:54→20:49)
[2018-10-02] MEDS: INSULIN REGULAR 100 UNIT/ML SUBCUT SCH ×3 (15:54→20:42)
[2018-10-02] MEDS: glipiZIDE 10 MG TABLET PO SCH (15:54)
[2018-10-02] MEDS: DOCUSATE SODIUM 100 MG CAPSULE PO SCH (15:54)
[2018-10-02] MEDS: PANTOPRAZOLE 40 MG TABLET PO SCH (15:54)
[2018-10-02] MEDS: FERROUS SULFATE 325 MG TABLET PO SCH (15:54)
[2018-10-02] MEDS: AMIODARONE 200 MG TABLET PO SCH ×2 (15:55→20:41)
[2018-10-02] MEDS: ceFAZolin 1,000 MG in SYRINGE 1 EACH IV SCH (20:43)
[2018-10-02] MEDS ORDERED: CARVEDILOL 3.125 MG TABLET PO SCH (21:00)
[2018-10-03] MEDS ORDERED: DEXTROSE 10% 250 ML IV ONE (00:53)
[2018-10-03 01:07] LABS: Basophils # 0.1 10*3/uL (0.0-0.2); Basophils % 0.4 % (0.0-0.8); Eosinophils # 0.4 10*3/uL (0.0-0.87); Eosinophils % 3.1 % (0.00-10.9); Hematocrit 32.4 VOL% (42.0-52.0); Hemoglobin 11.1 GM/DL (14.0-18.0); Immature Granulocytes Absolute 0.12 #; Lymphocytes # 2.8 10*3/uL (1.4-4.0); Lymphocytes % 22.7 % (21.2-54.2); Mean Corpuscular HGB Conc 34.3 GM/DL (32-36); Mean Corpuscular Volume 94.2 FL (87-102); Mean Platelet Volume 10.6 FL (9.6-12.0); Monocytes % 12.5 % (1.7-12.7); Neutrophils % 60.3 % (38.7-73.9); Platelet Count 235 T/CUMM (130-400); Red Blood Count 3.44 MC/CUMM (3.8-5.5); Red Cell Distribution Width 13.3 % (9.3-17.3); White Blood Count 12.4 T/CUMM (4-12)
[2018-10-03 01:30] LABS: Alanine Aminotransferase 16 U/L (16-61); Albumin 3.6 G/DL (3.4-5.0); Alkaline Phosphatase 59 U/L (45-117); Aspartate Amino Transferase 16 U/L (0-37); Bilirubin,Indirect 0.9 MG/DL (0.0-1.0); Blood Urea Nitrogen 34 MG/DL (7-18); Osmolality,Calculated 287.1 MOS/KG (273-304); Total Protein 7.2 G/DL (6.4-8.3)
[2018-10-03 01:34] LABS: Glucose 38 MG/DL (74-106)
[2018-10-03] MEDS: ceFAZolin 1,000 MG in SYRINGE 1 EACH IV SCH (04:16)
[2018-10-03] MEDS ORDERED: METOPROLOL TARTRATE 50 MG TABLET PO SCH (07:42)
[2018-10-03] MEDS: FERROUS SULFATE 325 MG TABLET PO SCH (09:27)
[2018-10-03] MEDS: ASCORBIC ACID 500 MG TABLET PO SCH ×2 (09:27→20:48)
[2018-10-03] MEDS: DOCUSATE SODIUM 100 MG CAPSULE PO SCH (09:27)
[2018-10-03] MEDS: glipiZIDE 10 MG TABLET PO SCH (09:27)
[2018-10-03] MEDS: PANTOPRAZOLE 40 MG TABLET PO SCH (09:27)
[2018-10-03] MEDS: ASPIRIN EC 81 MG TABLET PO SCH (09:27)
[2018-10-03] MEDS: AMIODARONE 200 MG TABLET PO SCH ×2 (09:27→20:47)
[2018-10-03] MEDS: CHLORHEXIDINE 0.12% ORAL RINSE 60 ML BOTTLE SWISH/SPIT SCH ×2 (09:28→20:48)
[2018-10-03] MEDS: INSULIN REGULAR 100 UNIT/ML SUBCUT SCH ×4 (11:21→20:47)
[2018-10-03] MEDS: cephALEXin 500 MG CAPSULE PO SCH ×2 (14:07→20:48)
[2018-10-03] MEDS ORDERED: AMIODARONE INJ 100 MG in DEXTROSE 5% 100 ML IV ONE (23:16)
[2018-10-03] MEDS ORDERED: DILTIAZEM 25 MG/5 ML VIAL IV ONE (23:18)
[2018-10-03] MEDS: dilTIAZem Drip 125 MG/125 ML PREMIX IV SCH (23:41)
[2018-10-03] MEDS: AMIODARONE INJ 450 MG in DEXTROSE 5% 241 ML IV SCH (23:49)
[2018-10-03] MEDS ORDERED: MORPHINE 4 MG/1 ML VIAL IV PRN (23:53)
[2018-10-04] MEDS: oxyCODONE/ACETAMINOPHEN 5-325 MG TABLET PO PRN (05:04)
[2018-10-04 06:17] LABS: Basophils % 0.3 % (0.0-0.8); Eosinophils # 0.3 10*3/uL (0.0-0.87); Eosinophils % 2.9 % (0.00-10.9); Hematocrit 28.5 VOL% (42.0-52.0); Hemoglobin 9.4 GM/DL (14.0-18.0); Immature Granulocytes % 1.4 %; Immature Granulocytes Absolute 0.14 #; Lymphocytes # 1.8 10*3/uL (1.4-4.0); Lymphocytes % 17.5 % (21.2-54.2); Mean Corpuscular Volume 97.3 FL (87-102); Mean Platelet Volume 10.4 FL (9.6-12.0); Monocytes % 10.7 % (1.7-12.7); Neutrophils % 67.2 % (38.7-73.9); Platelet Count 176 T/CUMM (130-400); Red Blood Count 2.93 MC/CUMM (3.8-5.5); Red Cell Distribution Width 13.7 % (9.3-17.3); White Blood Count 10.2 T/CUMM (4-12)
[2018-10-04 06:46] LABS: Alanine Aminotransferase 14 U/L (16-61); Albumin 2.6 G/DL (3.4-5.0); Alkaline Phosphatase 51 U/L (45-117); Aspartate Amino Transferase 10 U/L (0-37); Bilirubin,Indirect 0.3 MG/DL (0.0-1.0); Bilirubin,Total < 0.39 MG/DL (0.2-1.0); Blood Urea Nitrogen 32 MG/DL (7-18); Calcium 7.8 MG/DL (8.5-10.1); Glucose 291 MG/DL (74-106); Osmolality,Calculated 294.5 MOS/KG (273-304); Total Protein 5.6 G/DL (6.4-8.3)
[2018-10-04 06:47] LABS: Troponin I 0.477 NG/ML (0.00-0.045)
[2018-10-04] MEDS: LISINOPRIL 20 MG TABLET PO SCH (08:51)
[2018-10-04] MEDS: glipiZIDE 10 MG TABLET PO SCH (08:51)
[2018-10-04] MEDS: DOCUSATE SODIUM 100 MG CAPSULE PO SCH (08:52)
[2018-10-04] MEDS: ASPIRIN EC 81 MG TABLET PO SCH (08:52)
[2018-10-04] MEDS: PANTOPRAZOLE 40 MG TABLET PO SCH (08:52)
[2018-10-04] MEDS: ASCORBIC ACID 500 MG TABLET PO SCH ×2 (08:52→20:26)
[2018-10-04] MEDS: AMIODARONE 200 MG TABLET PO SCH ×2 (08:52→20:27)
[2018-10-04] MEDS: FERROUS SULFATE 325 MG TABLET PO SCH (08:52)
[2018-10-04] MEDS: cephALEXin 500 MG CAPSULE PO SCH ×2 (09:38→20:26)
[2018-10-04] MEDS: INSULIN REGULAR 100 UNIT/ML SUBCUT SCH ×6 (09:38→20:26)
[2018-10-04] MEDS: CHLORHEXIDINE 0.12% ORAL RINSE 60 ML BOTTLE SWISH/SPIT SCH ×2 (09:40→20:27)
[2018-10-04] MEDS: dilTIAZem Drip 125 MG/125 ML PREMIX IV SCH (10:11)
[2018-10-04] MEDS ORDERED: AMIODARONE 200 MG TABLET PO ONE (10:40)
[2018-10-04] MEDS ORDERED: ENOXAPARIN 80 MG/0.8 ML SYRINGE SUBCUT ONE (10:40)
[2018-10-04] MEDS ORDERED: SODIUM CHLORIDE 0.9% 500 ML IV ONE (16:39)
[2018-10-04] MEDS: AMIODARONE INJ 450 MG in DEXTROSE 5% 241 ML IV SCH (16:50)
[2018-10-05] MEDS: dilTIAZem Drip 125 MG/125 ML PREMIX IV SCH (00:25)
[2018-10-05 05:56] LABS: Basophils % 0.3 % (0.0-0.8); Eosinophils # 0.3 10*3/uL (0.0-0.87); Eosinophils % 1.9 % (0.00-10.9); Hematocrit 27.1 VOL% (42.0-52.0); Immature Granulocytes % 1.6 %; Immature Granulocytes Absolute 0.22 #; Lymphocytes # 2.7 10*3/uL (1.4-4.0); Lymphocytes % 19.6 % (21.2-54.2); Mean Corpuscular HGB Conc 33.2 GM/DL (32-36); Mean Corpuscular Volume 97.1 FL (87-102); Mean Platelet Volume 10.3 FL (9.6-12.0); Monocytes % 9.4 % (1.7-12.7); Neutrophils % 67.2 % (38.7-73.9); Platelet Count 183 T/CUMM (130-400); Red Blood Count 2.79 MC/CUMM (3.8-5.5); Red Cell Distribution Width 13.9 % (9.3-17.3); White Blood Count 13.9 T/CUMM (4-12)
[2018-10-05] MEDS: AMIODARONE INJ 450 MG in DEXTROSE 5% 241 ML IV SCH ×2 (06:19→21:27)
[2018-10-05 06:31] LABS: Calcium 8.3 MG/DL (8.5-10.1); Osmolality,Calculated 291.3 MOS/KG (273-304)
[2018-10-05] MEDS: ASCORBIC ACID 500 MG TABLET PO SCH ×2 (09:39→21:26)
[2018-10-05] MEDS: glipiZIDE 10 MG TABLET PO SCH (09:39)
[2018-10-05] MEDS: INSULIN REGULAR 100 UNIT/ML SUBCUT SCH ×4 (09:39→21:27)
[2018-10-05] MEDS: AMIODARONE 200 MG TABLET PO SCH ×2 (09:40→21:26)
[2018-10-05] MEDS: FERROUS SULFATE 325 MG TABLET PO SCH (09:40)
[2018-10-05] MEDS: DOCUSATE SODIUM 100 MG CAPSULE PO SCH (09:40)
[2018-10-05] MEDS: cephALEXin 500 MG CAPSULE PO SCH ×2 (09:40→21:26)
[2018-10-05] MEDS: ASPIRIN EC 81 MG TABLET PO SCH (09:40)
[2018-10-05] MEDS: LISINOPRIL 20 MG TABLET PO SCH (09:40)
[2018-10-05] MEDS: PANTOPRAZOLE 40 MG TABLET PO SCH (09:40)
[2018-10-05] MEDS: CHLORHEXIDINE 0.12% ORAL RINSE 60 ML BOTTLE SWISH/SPIT SCH ×2 (09:41→21:27)
[2018-10-05] MEDS: MAGNESIUM HYDROXIDE SUSP 30 ML UDCUP PO PRN (13:53)
[2018-10-05] MEDS ORDERED: SIMETHICONE CHEW 80 MG TABLET PO PRN (19:37)
[2018-10-06] MEDS: dilTIAZem Drip 125 MG/125 ML PREMIX IV SCH ×2 (04:21→05:48)
[2018-10-06] MEDS: AMIODARONE 200 MG TABLET PO SCH ×2 (09:11→20:54)
[2018-10-06] MEDS: cephALEXin 500 MG CAPSULE PO SCH ×2 (09:11→20:54)
[2018-10-06] MEDS: LISINOPRIL 20 MG TABLET PO SCH (09:11)
[2018-10-06] MEDS: glipiZIDE 10 MG TABLET PO SCH (09:11)
[2018-10-06] MEDS: ASCORBIC ACID 500 MG TABLET PO SCH ×2 (09:11→20:54)
[2018-10-06] MEDS: DOCUSATE SODIUM 100 MG CAPSULE PO SCH (09:12)
[2018-10-06] MEDS: APIXABAN 2.5 MG TABLET PO SCH ×2 (09:12→20:54)
[2018-10-06] MEDS: FERROUS SULFATE 325 MG TABLET PO SCH (09:12)
[2018-10-06] MEDS: PANTOPRAZOLE 40 MG TABLET PO SCH (09:12)
[2018-10-06] MEDS: ASPIRIN EC 81 MG TABLET PO SCH (10:16)
[2018-10-06] MEDS: CHLORHEXIDINE 0.12% ORAL RINSE 60 ML BOTTLE SWISH/SPIT SCH ×2 (10:16→20:54)
[2018-10-06] MEDS: INSULIN REGULAR 100 UNIT/ML SUBCUT SCH ×4 (10:28→20:57)
[2018-10-06] MEDS: AMIODARONE INJ 450 MG in DEXTROSE 5% 241 ML IV SCH (11:30)
[2018-10-07] MEDS: dilTIAZem Drip 125 MG/125 ML PREMIX IV SCH (01:25)
[2018-10-07] MEDS: AMIODARONE INJ 450 MG in DEXTROSE 5% 241 ML IV SCH ×2 (01:35→16:13)
[2018-10-07] MEDS: INSULIN REGULAR 100 UNIT/ML SUBCUT SCH ×4 (07:11→22:32)
[2018-10-07] MEDS: glipiZIDE 10 MG TABLET PO SCH (08:42)
[2018-10-07] MEDS: cephALEXin 500 MG CAPSULE PO SCH ×2 (08:42→22:33)
[2018-10-07] MEDS: FERROUS SULFATE 325 MG TABLET PO SCH (08:43)
[2018-10-07] MEDS: ASPIRIN EC 81 MG TABLET PO SCH (08:43)
[2018-10-07] MEDS: AMIODARONE 200 MG TABLET PO SCH ×2 (08:43→22:32)
[2018-10-07] MEDS: LISINOPRIL 20 MG TABLET PO SCH (08:43)
[2018-10-07] MEDS: DOCUSATE SODIUM 100 MG CAPSULE PO SCH (08:43)
[2018-10-07] MEDS: ASCORBIC ACID 500 MG TABLET PO SCH ×2 (08:43→22:32)
[2018-10-07] MEDS: APIXABAN 2.5 MG TABLET PO SCH ×2 (08:43→22:34)
[2018-10-07] MEDS: PANTOPRAZOLE 40 MG TABLET PO SCH (08:43)
[2018-10-07] MEDS: CHLORHEXIDINE 0.12% ORAL RINSE 60 ML BOTTLE SWISH/SPIT SCH (08:46)
[2018-10-07] MEDS: INSULIN ASPART PROTAMINE/ASPART 70/30 100 UNIT/ML SUBCUT SCH ×2 (16:10→22:32)
[2018-10-07] MEDS ORDERED: PHENOL 1.4% THROAT SPRAY 177 ML BOTTLE PO PRN (16:21)
[2018-10-08] MEDS: CHLORHEXIDINE 0.12% ORAL RINSE 60 ML BOTTLE SWISH/SPIT SCH ×3 (00:38→21:44)
[2018-10-08] MEDS: dilTIAZem Drip 125 MG/125 ML PREMIX IV SCH (02:35)
[2018-10-08] MEDS: cephALEXin 500 MG CAPSULE PO SCH ×2 (08:35→21:36)
[2018-10-08] MEDS: AMIODARONE 200 MG TABLET PO SCH ×2 (08:35→21:36)
[2018-10-08] MEDS: DOCUSATE SODIUM 100 MG CAPSULE PO SCH (08:35)
[2018-10-08] MEDS: ASCORBIC ACID 500 MG TABLET PO SCH ×2 (08:35→21:36)
[2018-10-08] MEDS: glipiZIDE 10 MG TABLET PO SCH (08:35)
[2018-10-08] MEDS: APIXABAN 2.5 MG TABLET PO SCH ×2 (08:35→21:36)
[2018-10-08] MEDS: PANTOPRAZOLE 40 MG TABLET PO SCH (08:36)
[2018-10-08] MEDS: LISINOPRIL 20 MG TABLET PO SCH (08:36)
[2018-10-08] MEDS: ASPIRIN EC 81 MG TABLET PO SCH (08:36)
[2018-10-08] MEDS: FERROUS SULFATE 325 MG TABLET PO SCH (08:36)
[2018-10-08] MEDS: INSULIN ASPART PROTAMINE/ASPART 70/30 100 UNIT/ML SUBCUT SCH (08:44)
[2018-10-08] MEDS: INSULIN REGULAR 100 UNIT/ML SUBCUT SCH ×4 (09:57→21:45)
[2018-10-09] MEDS: INSULIN ASPART PROTAMINE/ASPART 70/30 100 UNIT/ML SUBCUT SCH ×3 (01:07→20:35)
[2018-10-09] MEDS ORDERED: DILTIAZEM 25 MG/5 ML VIAL IV ONE ×2 (01:35→01:43)
[2018-10-09] MEDS ORDERED: AMIODARONE INJ 100 MG in DEXTROSE 5% 100 ML IV ONE (02:00)
[2018-10-09] MEDS: oxyCODONE/ACETAMINOPHEN 5-325 MG TABLET PO PRN (03:01)
[2018-10-09] MEDS: cephALEXin 500 MG CAPSULE PO SCH ×2 (09:03→20:34)
[2018-10-09] MEDS: DOCUSATE SODIUM 100 MG CAPSULE PO SCH (09:03)
[2018-10-09] MEDS: glipiZIDE 10 MG TABLET PO SCH (09:04)
[2018-10-09] MEDS: FERROUS SULFATE 325 MG TABLET PO SCH (09:04)
[2018-10-09] MEDS: ASPIRIN EC 81 MG TABLET PO SCH (09:04)
[2018-10-09] MEDS: ASCORBIC ACID 500 MG TABLET PO SCH ×2 (09:04→20:34)
[2018-10-09] MEDS: INSULIN REGULAR 100 UNIT/ML SUBCUT SCH ×4 (09:04→20:36)
[2018-10-09] MEDS: APIXABAN 2.5 MG TABLET PO SCH ×2 (09:04→20:34)
[2018-10-09] MEDS: AMIODARONE 200 MG TABLET PO SCH ×2 (09:04→20:34)
[2018-10-09] MEDS: LISINOPRIL 20 MG TABLET PO SCH (09:04)
[2018-10-09] MEDS: PANTOPRAZOLE 40 MG TABLET PO SCH (09:05)
[2018-10-09] MEDS ORDERED: METOPROLOL TARTRATE 25 MG TABLET PO ONE (09:41)
[2018-10-09] MEDS ORDERED: METOPROLOL TARTRATE 50 MG TABLET PO SCH (09:42)
[2018-10-09] MEDS: CHLORHEXIDINE 0.12% ORAL RINSE 60 ML BOTTLE SWISH/SPIT SCH ×2 (09:56→20:35)
[2018-10-09] MEDS: dilTIAZem Drip 125 MG/125 ML PREMIX IV SCH ×2 (13:03→23:42)
[2018-10-10] MEDS: MAGNESIUM HYDROXIDE SUSP 30 ML UDCUP PO PRN (07:17)
[2018-10-10] MEDS ORDERED: METOPROLOL TARTRATE 25 MG TABLET PO SCH (09:00)
[2018-10-10] MEDS: INSULIN ASPART PROTAMINE/ASPART 70/30 100 UNIT/ML SUBCUT SCH (09:13)
[2018-10-10] MEDS: INSULIN REGULAR 100 UNIT/ML SUBCUT SCH ×2 (09:13→12:33)
[2018-10-10] MEDS: glipiZIDE 10 MG TABLET PO SCH (09:14)
[2018-10-10] MEDS: ASCORBIC ACID 500 MG TABLET PO SCH (09:14)
[2018-10-10] MEDS: FERROUS SULFATE 325 MG TABLET PO SCH (09:15)
[2018-10-10] MEDS: PANTOPRAZOLE 40 MG TABLET PO SCH (09:15)
[2018-10-10] MEDS: ASPIRIN EC 81 MG TABLET PO SCH (09:15)
[2018-10-10] MEDS: LISINOPRIL 20 MG TABLET PO SCH (09:15)
[2018-10-10] MEDS: DOCUSATE SODIUM 100 MG CAPSULE PO SCH (09:15)
[2018-10-10] MEDS: AMIODARONE 200 MG TABLET PO SCH (09:15)
[2018-10-10] MEDS: APIXABAN 2.5 MG TABLET PO SCH (09:16)
[2018-10-10] MEDS: CHLORHEXIDINE 0.12% ORAL RINSE 60 ML BOTTLE SWISH/SPIT SCH (09:16)
[2018-10-10] MEDS ORDERED: LACTULOSE 20 GM/30 ML UDCUP PO PRN (10:59)
[2018-10-10 12:38] VITALS: BP 102/57
== END 2018-10-10 14:42 | disposition swing bed (61) | DRG 234 ==
LOC: N.CL 06:11 → N.TELEN 10:03 → N.CVR 09-28 10:12 → N.TELES 09-29 10:20
PROVIDERS: ADMIT Internal Medicine Cardiovascular Disease; ATTEND Internal Medicine Cardiovascular Disease

== ENCOUNTER 2020-01-07 10:48 | Observation (INO) ==
[2020-01-07 12:04] LABS: Basophils % 0.4 % (0.0-0.8); Eosinophils # 0.1 10*3/uL (0.0-0.87); Eosinophils % 0.8 % (0.00-10.9); Hematocrit 35.6 VOL% (42.0-52.0); Hemoglobin 11.8 GM/DL (14.0-18.0); Immature Granulocytes % 0.4 %; Immature Granulocytes Absolute 0.03 #; Lymphocytes % 13.3 % (21.2-54.2); Mean Corpuscular HGB Conc 33.1 GM/DL (32-36); Mean Corpuscular Volume 97.8 FL (87-102); Mean Platelet Volume 10.5 FL (9.6-12.0); Monocytes % 8.8 % (1.7-12.7); Neutrophils % 76.3 % (38.7-73.9); Platelet Count 278 T/CUMM (130-400); Red Blood Count 3.64 MC/CUMM (3.8-5.5); Red Cell Distribution Width 12.4 % (9.3-17.3); White Blood Count 7.6 T/CUMM (4-12)
[2020-01-07 12:20] LABS: Albumin 2.8 G/DL (3.4-5.0); Calcium 8.4 MG/DL (8.5-10.1); Osmolality,Calculated 287.4 MOS/KG (273-304); Total Protein 6.4 G/DL (6.4-8.3)
[2020-01-07 13:07] LABS: Bilirubin,Urine Negative (Negative); Blood, Urine Negative (Negative); Glucose,Urine (UA) 150 mg/dL (Negative); Ketones,Urine 5 mg/dL (Negative); Nitrite,Urine Negative (Negative); Protein,Urine 30 MG/DL; RBC,Urine 3 /HPF (0-4); Urine Appearance CLEAR (Clear); Urine Color Yellow (Yellow); Urine Specific Gravity 1.023 (1.001-1.035)
[2020-01-07] MEDS ORDERED: GLUCAGON 1 MG VIAL IM PRN (13:45)
[2020-01-07] MEDS ORDERED: PROMETHAZINE 25 MG TABLET PO PRN (13:45)
[2020-01-07] MEDS ORDERED: DEXTROSE 50% 25 GM/50 ML VIAL IV PRN (13:45)
[2020-01-07] MEDS ORDERED: ACETAMINOPHEN 325 MG TABLET PO PRN (13:45)
[2020-01-07] MEDS ORDERED: ONDANSETRON 4 MG/2 ML VIAL IV PRN (13:45)
[2020-01-07] MEDS ORDERED: diphenhydrAMINE CAP 25 MG CAPSULE PO PRN (13:45)
[2020-01-07] MEDS ORDERED: guaiFENesin/DM ER 600-30 MG TABLET PO PRN (13:45)
[2020-01-07] MEDS: INSULIN REGULAR 100 UNIT/ML SUBCUT SCH ×2 (17:23→21:12)
[2020-01-08 05:49] LABS: Basophils % 0.4 % (0.0-0.8); Eosinophils # 0.1 10*3/uL (0.0-0.87); Hematocrit 32.2 VOL% (42.0-52.0); Hemoglobin 11.3 GM/DL (14.0-18.0); Immature Granulocytes % 0.4 %; Immature Granulocytes Absolute 0.04 #; Lymphocytes % 20.7 % (21.2-54.2); Mean Corpuscular HGB Conc 35.1 GM/DL (32-36); Mean Corpuscular Volume 95.8 FL (87-102); Mean Platelet Volume 10.6 FL (9.6-12.0); Monocytes % 8.3 % (1.7-12.7); Neutrophils % 69.2 % (38.7-73.9); Platelet Count 289 T/CUMM (130-400); Red Blood Count 3.36 MC/CUMM (3.8-5.5); Red Cell Distribution Width 12.2 % (9.3-17.3); White Blood Count 9.4 T/CUMM (4-12)
[2020-01-08 06:20] LABS: Albumin 2.5 G/DL (3.4-5.0); Bilirubin,Total 0.9 MG/DL (0.2-1.0); Calcium 8.2 MG/DL (8.5-10.1); Osmolality,Calculated 277.4 MOS/KG (273-304); Risk Ratio 4.48; Thyroid Stimulating Hormone 6.15 uIU/ml (0.358-3.74); Total Protein 6.2 G/DL (6.4-8.3); VLDL CHOLESTEROL 16.8 MG/DL
[2020-01-08 07:33] LABS: Free T4 (Free Thyroxine) 1.25 NG/DL (0.76-1.46)
[2020-01-08] MEDS: INSULIN REGULAR 100 UNIT/ML SUBCUT SCH ×4 (07:45→20:20)
[2020-01-08] MEDS ORDERED: PANTOPRAZOLE 40 MG TABLET PO SCH (09:00)
[2020-01-08] MEDS ORDERED: POTASSIUM CHLORIDE INJ 50 MEQ in SODIUM CHLORIDE 0.9% 500 ML IV ONE (10:00)
[2020-01-08] MEDS: APIXABAN 2.5 MG TABLET PO SCH ×2 (11:35→20:21)
[2020-01-08] MEDS: PANTOPRAZOLE 40 MG TABLET PO SCH (11:35)
[2020-01-08] MEDS: METOPROLOL TARTRATE 100 MG TABLET PO SCH ×2 (11:35→20:21)
[2020-01-08] MEDS: ASCORBIC ACID 500 MG TABLET PO SCH ×2 (11:35→20:21)
[2020-01-08] MEDS: lisinopriL 20 MG TABLET PO SCH (11:35)
[2020-01-08] MEDS ORDERED: TUBERCULIN SKIN TEST 0.1 ML SYRINGE INTRADERM ONE (11:46)
[2020-01-09 05:01] LABS: Basophils % 0.3 % (0.0-0.8); Eosinophils # 0.1 10*3/uL (0.0-0.87); Eosinophils % 0.6 % (0.00-10.9); Hematocrit 32.1 VOL% (42.0-52.0); Hemoglobin 10.8 GM/DL (14.0-18.0); Immature Granulocytes % 0.3 %; Immature Granulocytes Absolute 0.04 #; Lymphocytes # 1.7 10*3/uL (1.4-4.0); Lymphocytes % 13.3 % (21.2-54.2); Mean Corpuscular HGB Conc 33.6 GM/DL (32-36); Mean Corpuscular Volume 97.6 FL (87-102); Mean Platelet Volume 10.6 FL (9.6-12.0); Monocytes % 6.7 % (1.7-12.7); Neutrophils % 78.8 % (38.7-73.9); Platelet Count 294 T/CUMM (130-400); Red Blood Count 3.29 MC/CUMM (3.8-5.5); Red Cell Distribution Width 12.6 % (9.3-17.3); White Blood Count 12.7 T/CUMM (4-12)
[2020-01-09 05:25] LABS: Calcium 8.3 MG/DL (8.5-10.1); Osmolality,Calculated 278.5 MOS/KG (273-304)
[2020-01-09] MEDS ORDERED: LEVOTHYROXINE 25 MCG TABLET PO SCH (06:30)
[2020-01-09] MEDS: INSULIN REGULAR 100 UNIT/ML SUBCUT SCH ×2 (08:10→12:32)
[2020-01-09] MEDS: APIXABAN 2.5 MG TABLET PO SCH (08:11)
[2020-01-09] MEDS: METOPROLOL TARTRATE 100 MG TABLET PO SCH (08:11)
[2020-01-09] MEDS: PANTOPRAZOLE 40 MG TABLET PO SCH (08:11)
[2020-01-09] MEDS: lisinopriL 20 MG TABLET PO SCH (08:11)
[2020-01-09] MEDS: ASCORBIC ACID 500 MG TABLET PO SCH (08:11)
[2020-01-09] MEDS ORDERED: diphenhydrAMINE 50 MG/1 ML VIAL IV ONE (09:00)
[2020-01-09] MEDS ORDERED: LORazepam 2 MG/1 ML VIAL IV ONE (09:00)
[2020-01-09] MEDS ORDERED: LORazepam 2 MG/1 ML VIAL ONE (11:23)
[2020-01-09 11:47] VITALS: BP 120/52
== END 2020-01-09 14:16 ==
LOC: N.ED 10:48 → N.EDINP 10:48 → N.5E 15:00
PROVIDERS: ADMIT Internal Medicine; ATTEND Internal Medicine

== ENCOUNTER 2020-03-28 04:19 | Inpatient (IN) ==
[2020-03-28] MEDS ORDERED: SODIUM CHLORIDE 0.9% 500 ML IV STA (04:46)
[2020-03-28] MEDS ORDERED: PIPERACILLIN/TAZOBACTAM 3,375 MG in SODIUM CHLORIDE 0.9% 100 ML IV STA (05:19)
[2020-03-28 05:55] LABS: Basophils % 0.3 % (0.0-0.8); Eosinophils % 0.1 % (0.00-10.9); Hematocrit 33.8 VOL% (42.0-52.0); Hemoglobin 11.3 GM/DL (14.0-18.0); Immature Granulocytes % 0.4 %; Immature Granulocytes Absolute 0.05 #; Lymphocytes # 0.9 10*3/uL (1.4-4.0); Lymphocytes % 7.7 % (21.2-54.2); Mean Corpuscular HGB Conc 33.4 GM/DL (32-36); Mean Corpuscular Volume 96.6 FL (87-102); Mean Platelet Volume 9.5 FL (9.6-12.0); Monocytes % 6.4 % (1.7-12.7); Neutrophils % 85.1 % (38.7-73.9); Platelet Count 294 T/CUMM (130-400)
[2020-03-28 06:03] LABS: INR 1.1; PT Patient Result 11.6 SECS (9.8-11.9)
[2020-03-28 06:16] LABS: Alanine Aminotransferase 10 U/L (16-61); Albumin 2.9 G/DL (3.4-5.0); Alkaline Phosphatase 101 U/L (45-117); Aspartate Amino Transferase 21 U/L (0-37); Blood Urea Nitrogen 18 MG/DL (7-18); Calcium 8.3 MG/DL (8.5-10.1); Estimated Glom Filtration Rate 96 ML/MIN; Glucose 128 MG/DL (74-106); Osmolality,Calculated 286.1 MOS/KG (273-304); Total Protein 6.6 G/DL (6.4-8.3)
[2020-03-28 06:50] LABS: Bacteria,Urine Occasional /HPF (Few); Bilirubin,Urine Negative (Negative); Blood, Urine Negative (Negative); Glucose,Urine (UA) Negative (Negative); Ketones,Urine Negative (Negative); Mucus,Urine Occasional /LPF (Occasional); Nitrite,Urine Negative (Negative); Protein,Urine Negative; RBC,Urine 3 /HPF (0-4); Urine Appearance CLEAR (Clear); Urine Color Yellow (Yellow); Urine Specific Gravity 1.006 (1.001-1.035); Urine Urobilinogen < 2.0 EU/DL (0.2-1.0); WBC,Urine 29 /HPF (0-6)
[2020-03-28 06:55] LABS: Barbiturates Screen,Urine Negative (Negative); Benzodiazepines Screen,Urine Negative (Negative); Cannabinoid Screen,Urine Negative (Negative); Opiate Screen,Urine Negative (Negative); Phencyclidine Screen,Urine Negative (Negative)
[2020-03-28] MEDS ORDERED: ACETAMINOPHEN 325 MG TABLET PO PRN (07:36)
[2020-03-28] MEDS ORDERED: GLUCAGON 1 MG VIAL IM PRN (07:36)
[2020-03-28] MEDS ORDERED: ONDANSETRON 4 MG/2 ML VIAL IV PRN (07:36)
[2020-03-28] MEDS ORDERED: cloNIDine 0.1 MG TABLET ONE (07:58)
[2020-03-28] MEDS ORDERED: NITROGLYCERIN SL 0.4 MG TABLET SL PRN (13:16)
[2020-03-28] MEDS: cefTRIAXone 1,000 MG in SYRINGE 1 EACH IV SCH (15:41)
[2020-03-28] MEDS: PANTOPRAZOLE 40 MG TABLET PO SCH (15:41)
[2020-03-28] MEDS: DOCUSATE SODIUM 100 MG CAPSULE PO SCH ×2 (15:41→22:00)
[2020-03-28] MEDS: INSULIN LISPRO 100 UNIT/ML SUBCUT SCH ×3 (15:41→22:00)
[2020-03-28] MEDS: DEXTROSE 50% 25 GM/50 ML VIAL IV PRN (15:42)
[2020-03-28] MEDS: SODIUM CHLORIDE 0.45% 1,000 ML IV SCH ×2 (17:52→21:20)
[2020-03-28] MEDS: METOPROLOL TARTRATE 100 MG TABLET PO SCH (22:00)
[2020-03-28] MEDS: APIXABAN 2.5 MG TABLET PO SCH (22:00)
[2020-03-29] MEDS: DEXTROSE 50% 25 GM/50 ML VIAL IV PRN (02:59)
[2020-03-29] MEDS: LEVOTHYROXINE 25 MCG TABLET PO SCH (05:35)
[2020-03-29 05:39] LABS: Basophils % 0.4 % (0.0-0.8); Eosinophils # 0.1 10*3/uL (0.0-0.87); Eosinophils % 1.7 % (0.00-10.9); Hematocrit 31.8 VOL% (42.0-52.0); Hemoglobin 10.5 GM/DL (14.0-18.0); Immature Granulocytes % 0.5 %; Immature Granulocytes Absolute 0.04 #; Lymphocytes # 1.4 10*3/uL (1.4-4.0); Lymphocytes % 17.1 % (21.2-54.2); Mean Corpuscular Volume 97.2 FL (87-102); Mean Platelet Volume 9.7 FL (9.6-12.0); Monocytes % 9.9 % (1.7-12.7); Neutrophils % 70.4 % (38.7-73.9); Platelet Count 274 T/CUMM (130-400); Red Blood Count 3.27 MC/CUMM (3.8-5.5); Red Cell Distribution Width 13.2 % (9.3-17.3); White Blood Count 8.1 T/CUMM (4-12)
[2020-03-29 05:59] LABS: Calcium 7.9 MG/DL (8.5-10.1)
[2020-03-29] MEDS: INSULIN LISPRO 100 UNIT/ML SUBCUT SCH ×4 (08:11→22:55)
[2020-03-29] MEDS: DOCUSATE SODIUM 100 MG CAPSULE PO SCH ×2 (08:12→20:30)
[2020-03-29] MEDS: METOPROLOL TARTRATE 100 MG TABLET PO SCH ×2 (08:12→20:30)
[2020-03-29] MEDS: APIXABAN 2.5 MG TABLET PO SCH ×2 (08:12→20:30)
[2020-03-29] MEDS: PANTOPRAZOLE 40 MG TABLET PO SCH (08:12)
[2020-03-29] MEDS: lisinopriL 10 MG TABLET PO SCH (08:13)
[2020-03-29] MEDS: cefTRIAXone 1,000 MG in SYRINGE 1 EACH IV SCH (08:17)
[2020-03-29] MEDS: POTASSIUM CHLORIDE 20 MEQ TABLET PO PRN ×4 (10:31→17:57)
[2020-03-29] MEDS: SODIUM CHLORIDE 0.45% 1,000 ML IV SCH (11:51)
[2020-03-29] MEDS: CHOLECALCIFEROL 1,000 UNIT TABLET PO SCH (15:08)
[2020-03-30] MEDS: SODIUM CHLORIDE 0.45% 1,000 ML IV SCH ×2 (05:40→15:49)
[2020-03-30] MEDS: LEVOTHYROXINE 25 MCG TABLET PO SCH (05:40)
[2020-03-30] MEDS: INSULIN LISPRO 100 UNIT/ML SUBCUT SCH ×4 (10:10→21:10)
[2020-03-30] MEDS: APIXABAN 2.5 MG TABLET PO SCH ×2 (10:11→21:09)
[2020-03-30] MEDS: METOPROLOL TARTRATE 100 MG TABLET PO SCH ×2 (10:11→21:11)
[2020-03-30] MEDS: DOCUSATE SODIUM 100 MG CAPSULE PO SCH ×2 (10:11→21:10)
[2020-03-30] MEDS: CHOLECALCIFEROL 1,000 UNIT TABLET PO SCH (10:11)
[2020-03-30] MEDS: PANTOPRAZOLE 40 MG TABLET PO SCH (10:11)
[2020-03-30] MEDS: lisinopriL 10 MG TABLET PO SCH (10:11)
[2020-03-30] MEDS: cefTRIAXone 1,000 MG in SYRINGE 1 EACH IV SCH (11:19)
[2020-03-31] MEDS: SODIUM CHLORIDE 0.45% 1,000 ML IV SCH ×2 (03:53→16:58)
[2020-03-31] MEDS: LEVOTHYROXINE 25 MCG TABLET PO SCH (05:41)
[2020-03-31 06:23] LABS: Basophils % 0.3 % (0.0-0.8); Eosinophils # 0.1 10*3/uL (0.0-0.87); Eosinophils % 0.8 % (0.00-10.9); Hematocrit 33.5 VOL% (42.0-52.0); Hemoglobin 11.4 GM/DL (14.0-18.0); Immature Granulocytes % 0.6 %; Immature Granulocytes Absolute 0.06 #; Lymphocytes # 1.5 10*3/uL (1.4-4.0); Lymphocytes % 14.8 % (21.2-54.2); Mean Corpuscular Volume 94.9 FL (87-102); Mean Platelet Volume 9.5 FL (9.6-12.0); Monocytes % 9.3 % (1.7-12.7); Neutrophils % 74.2 % (38.7-73.9); Platelet Count 282 T/CUMM (130-400); Red Blood Count 3.53 MC/CUMM (3.8-5.5); Red Cell Distribution Width 12.6 % (9.3-17.3); White Blood Count 10.4 T/CUMM (4-12)
[2020-03-31 06:48] LABS: Calcium 8.3 MG/DL (8.5-10.1); Osmolality,Calculated 285.7 MOS/KG (273-304)
[2020-03-31] MEDS: INSULIN LISPRO 100 UNIT/ML SUBCUT SCH ×4 (09:34→20:20)
[2020-03-31] MEDS: APIXABAN 2.5 MG TABLET PO SCH ×2 (09:35→20:19)
[2020-03-31] MEDS: DOCUSATE SODIUM 100 MG CAPSULE PO SCH ×2 (09:35→20:19)
[2020-03-31] MEDS: lisinopriL 10 MG TABLET PO SCH (09:36)
[2020-03-31] MEDS: METOPROLOL TARTRATE 100 MG TABLET PO SCH ×2 (09:36→20:19)
[2020-03-31] MEDS: PANTOPRAZOLE 40 MG TABLET PO SCH (09:37)
[2020-03-31] MEDS: cefTRIAXone 1,000 MG in SYRINGE 1 EACH IV SCH (09:37)
[2020-03-31] MEDS: CHOLECALCIFEROL 1,000 UNIT TABLET PO SCH (09:37)
[2020-03-31] MEDS ORDERED: INSULIN GLARGINE 100 UNIT/ML SUBCUT SCH (12:00)
[2020-03-31] MEDS: DEXTROSE 50% 25 GM/50 ML VIAL IV PRN (16:22)
[2020-04-01] MEDS: DEXTROSE 50% 25 GM/50 ML VIAL IV PRN (01:55)
[2020-04-01] MEDS: LEVOTHYROXINE 25 MCG TABLET PO SCH (05:34)
[2020-04-01] MEDS: SODIUM CHLORIDE 0.45% 1,000 ML IV SCH ×2 (05:34→20:56)
[2020-04-01] MEDS: INSULIN LISPRO 100 UNIT/ML SUBCUT SCH ×4 (07:21→17:38)
[2020-04-01] MEDS: APIXABAN 2.5 MG TABLET PO SCH ×2 (08:11→20:56)
[2020-04-01] MEDS: CHOLECALCIFEROL 1,000 UNIT TABLET PO SCH (08:11)
[2020-04-01] MEDS: METOPROLOL TARTRATE 100 MG TABLET PO SCH ×2 (08:11→20:56)
[2020-04-01] MEDS: DOCUSATE SODIUM 100 MG CAPSULE PO SCH ×2 (08:11→20:56)
[2020-04-01] MEDS: lisinopriL 10 MG TABLET PO SCH (08:11)
[2020-04-01] MEDS: cefTRIAXone 1,000 MG in SYRINGE 1 EACH IV SCH (08:11)
[2020-04-01] MEDS: PANTOPRAZOLE 40 MG TABLET PO SCH (08:12)
[2020-04-01] MEDS: INSULIN GLARGINE 100 UNIT/ML SUBCUT SCH (11:57)
[2020-04-01] MEDS ORDERED: TUBERCULIN SKIN TEST 0.1 ML SYRINGE INTRADERM ONE (12:56)
[2020-04-02] MEDS: LEVOTHYROXINE 25 MCG TABLET PO SCH (05:47)
[2020-04-02] MEDS: DOCUSATE SODIUM 100 MG CAPSULE PO SCH ×2 (09:47→21:28)
[2020-04-02] MEDS: APIXABAN 2.5 MG TABLET PO SCH ×2 (09:47→21:28)
[2020-04-02] MEDS: INSULIN LISPRO 100 UNIT/ML SUBCUT SCH ×3 (09:47→16:53)
[2020-04-02] MEDS: METOPROLOL TARTRATE 100 MG TABLET PO SCH ×2 (09:48→21:28)
[2020-04-02] MEDS: CHOLECALCIFEROL 1,000 UNIT TABLET PO SCH (09:48)
[2020-04-02] MEDS: INSULIN GLARGINE 100 UNIT/ML SUBCUT SCH (09:48)
[2020-04-02] MEDS: PANTOPRAZOLE 40 MG TABLET PO SCH (09:48)
[2020-04-02] MEDS: lisinopriL 10 MG TABLET PO SCH (09:48)
[2020-04-02] MEDS: cefTRIAXone 1,000 MG in SYRINGE 1 EACH IV SCH (09:48)
[2020-04-02] MEDS: SODIUM CHLORIDE 0.45% 1,000 ML IV SCH (10:42)
[2020-04-03] MEDS: SODIUM CHLORIDE 0.45% 1,000 ML IV SCH ×2 (00:04→11:59)
[2020-04-03] MEDS: LEVOTHYROXINE 25 MCG TABLET PO SCH (05:33)
[2020-04-03] MEDS: DOCUSATE SODIUM 100 MG CAPSULE PO SCH (09:05)
[2020-04-03] MEDS: METOPROLOL TARTRATE 100 MG TABLET PO SCH (09:05)
[2020-04-03] MEDS: lisinopriL 10 MG TABLET PO SCH (09:05)
[2020-04-03] MEDS: PANTOPRAZOLE 40 MG TABLET PO SCH (09:06)
[2020-04-03] MEDS: APIXABAN 2.5 MG TABLET PO SCH (09:06)
[2020-04-03] MEDS: CHOLECALCIFEROL 1,000 UNIT TABLET PO SCH (09:06)
[2020-04-03] MEDS: INSULIN LISPRO 100 UNIT/ML SUBCUT SCH ×2 (09:06→11:58)
[2020-04-03] MEDS: INSULIN GLARGINE 100 UNIT/ML SUBCUT SCH (09:06)
[2020-04-03] MEDS: cefTRIAXone 1,000 MG in SYRINGE 1 EACH IV SCH (09:45)
[2020-04-03 12:08] VITALS: BP 106/53
== END 2020-04-03 13:02 | disposition home health service (06) | DRG 689 ==
LOC: EDUNIT# → EDBD → N.ED 04:19 → N.EDINP 07:36 → INTOOBSV 07:36 → N.5E 08:09
PROVIDERS: ADMIT Internal Medicine; ATTEND Internal Medicine